=== PATIENT | male | born 1995 | race Caucasian/White ===

== ENCOUNTER 2018-07-01 15:27 | Outpatient (CLI) ==
[2014-11-05 22:13] VITALS: BMI 31.8
--- NOTE | 2018-07-01 16:12 | DI ---
EXAM: Three views of the left wrist. History: Left wrist pain. Findings: No acute fracture or dislocation. No abnormal calcifications or radiopaque foreign bodies . Joint spaces are preserved. Impression: Normal study
--- NOTE | 2018-07-01 16:15 | DI ---
EXAM: Three views of the right wrist. History: Right wrist pain. Findings: No acute fracture or dislocation. No abnormal calcifications or radiopaque foreign bodies . Joint spaces are preserved. Impression: Normal study
== END 2018-07-01 15:28 | disposition home or self-care (01) ==
LOC: LAB 15:27
PROVIDERS: ATTEND Emergency Medicine
DX: R39.15 Urgency of urination (principal); M25.531 Pain in right wrist
CPT/HCPCS: 81001

== ENCOUNTER 2018-07-11 11:49 | Outpatient (CLI) ==
[2014-11-05 22:13] VITALS: BMI 31.8
== END 2018-07-11 11:50 | disposition home or self-care (01) ==
LOC: LAB 11:49
PROVIDERS: ATTEND Emergency Medicine
DX: Z00.00 Encounter for general adult medical examination without abnormal findings (principal); R35.0 Frequency of micturition; Z83.3 Family history of diabetes mellitus
CPT/HCPCS: 36415; 80053; 85025